=== PATIENT | female | born 1990 | race Caucasian/White ===

== ENCOUNTER 2018-05-24 21:31 | Emergency (ER) | payer SELFPAY ==
[~2018-05-24] VITALS: Ht 162.6 cm; Wt 49.0 kg
[~2018-05-24 21:31] MED LIST: IBUP800T19 PO; PREN1TAB58 PO
--- NOTE | 2018-05-24 21:57 | PHYS DOC ---
Adult General Chief Complaint Chief Complaint redness HPI HPI This is 28 years old female with a history of IV drug use presented to the emergency department with right forearm is willing redness tenderness after her last shot for the past 24 hours No fever no chills no urgency no frequency no any other symptoms Review of Systems Review of Systems Constitutional: Denies fever or chills [] Eyes: Denies change in visual acuity, redness, or eye pain [] HENT: Denies nasal congestion or sore throat [] Respiratory: Denies cough or shortness of breath [] Cardiovascular: No additional information not addressed in HPI [] GI: Denies abdominal pain, nausea, vomiting, bloody stools or diarrhea [] : Denies dysuria or hematuria [] Musculoskeletal: Right forearm swelling tenderness and redness[] Integument: Denies rash or skin lesions [] Neurologic: Denies headache, focal weakness or sensory changes [] Endocrine: Denies polyuria or polydipsia [] All other systems were reviewed and found to be within normal limits, except as documented in this note. Allergies Allergies Allergies Coded Allergies Type Severity Reaction Last Updated Verified Sulfa (Sulfonamide Antibiotics) Allergy Mild Hives 07/25/13 Yes amoxicillin trihydrate Adverse Reaction Mild Nausea 07/25/13 Yes potassium clavulanate Adverse Reaction Mild Nausea 07/25/13 Yes Physical Exam Physical Exam Constitutional: Well developed, well nourished, no acute distress, non-toxic appearance. [] HENT: Normocephalic, atraumatic, bilateral external ears normal, oropharynx moist, no oral exudates, nose normal. [] Eyes: PERRLA, EOMI, conjunctiva normal, no discharge. [] Neck: Normal range of motion, no tenderness, supple, no stridor. [] Cardiovascular:Heart rate regular rhythm, no murmur [] Lungs & Thorax: Bilateral breath sounds clear to auscultation [] Abdomen: Bowel sounds normal, soft, no tenderness, no masses, no pulsatile masses. [] Skin: Right forearm redness swelling tenderness 55 cm Back: No tenderness, no CVA tenderness. [] Extremities: No tenderness, no cyanosis, no clubbing, ROM intact, no edema. [] Neurologic: Alert and oriented X 3, normal motor function, normal sensory function, no focal deficits noted. [] Psychologic: Affect normal, judgement normal, mood normal. [] EKG EKG [] Radiology/Procedures Radiology/Procedures [] Course & Med Decision Making Course & Med Decision Making Pertinent Labs and Imaging studies reviewed. (See chart for details) [] Final Impression Final Impression Patient will be discharged home on Keflex and doxycycline She stated she took both medication the past and did not have any allergic reaction[] Problems: (1) Cellulitis Qualifiers: Qualified Codes: L03.113 - Cellulitis of right upper limb Dragon Disclaimer Dragon Disclaimer This electronic medical record was generated, in whole or in part, using a voice recognition dictation system. ESTHER FARIAS MD May 24, 2018 21:57
[2018-05-24] MEDS ORDERED: IBUP800T19 PO (21:59)
[2018-05-24] MEDS ORDERED: CEPH-264 PO (21:59)
[2018-05-24] MEDS ORDERED: DOXY100T9 PO (21:59)
[2018-05-24] MEDS: KETOROLAC 60 MG/2 ML VIAL. IM ONE (22:11)
[2018-05-24] MEDS: cefTRIAXone IM 1 GM VIAL IM ONE (22:11)
[2018-05-24 22:35] VITALS: BP 98/57
== END 2018-05-24 22:35 | disposition home or self-care (01) ==
LOC: ER 21:31
DX: L03.113 Cellulitis of right upper limb (principal); Z88.2 Allergy status to sulfonamides; Z88.1 Allergy status to other antibiotic agents; Z88.8 Allergy status to other drugs, medicaments and biological substances
CPT/HCPCS: 96372; 99284; J0696; J1885

== ENCOUNTER 2021-02-01 23:43 | Emergency (ER) | payer SELFPAY ==
[~2021-02-01] VITALS: Ht 162.6 cm; Wt 54.0 kg
[2021-02-01 23:43] VITALS: BP 98/57
[~2021-02-01 23:43] MED LIST changes: +CEPH-264 PO; +DOXY-96 PO
--- NOTE | 2021-02-01 23:49 | PHYS DOC ---
Past History Past Medical History: Anxiety, Depression Past Surgical History: Appendectomy, Tonsillectomy, Other Smoking: Cigarettes, Greater than 1 pack/day Alcohol Use: None Drug Use: Heroin, Methamphetamine, Opiates General Adult EDM: Chief Complaint: DENTAL PROBLEM HPI: HPI: ".. I ve got bad teeth.. but now probably a abscess.. or infection.. the whole side of my face is swollen.. here on Lt. ..." Patient is a 31 year old female who presents with above hx and complaints of left mandible pain and edema. Patient has multiple areas of dental decay. Has obvious marked pain in teeth 21,22 ,23 and 24. No trismus. Does have facial swelling and erythema. Does have adenopathy at the angle of mandible on the left. Patient requesting to be started on antibiotics until she can follow-up with dentist. No recent travel. No sick ill contacts. Has had history of MRSA in the past. Review of Systems: Review of Systems: Constitutional: Denies fever or chills Eyes: Denies change in visual acuity HENT: Complains of dental pain Respiratory: Denies cough or shortness of breath Cardiovascular: Denies chest pain or edema GI: Denies abdominal pain, nausea, vomiting, bloody stools or diarrhea : Denies dysuria Musculoskeletal: Denies back pain or joint pain Integument: Denies rash Neurologic: Denies headache, focal weakness or sensory changes Endocrine: Denies polyuria or polydipsia Lymphatic: Denies swollen glands Psychiatric: Denies depression or anxiety Family History: Family History: Noncontributory presentation Current Medications: Current Meds: See nursing for home meds Allergies: Allergies: Allergies Coded Allergies Type Severity Reaction Last Updated Verified Sulfa (Sulfonamide Antibiotics) Allergy Mild Hives 07/25/13 Yes amoxicillin trihydrate Adverse Reaction Mild Nausea 07/25/13 Yes potassium clavulanate Adverse Reaction Mild Nausea 07/25/13 Yes Physical Exam: PE: Constitutional: Moderate acute distress, non-toxic appearance. [] HENT: Normocephalic, atraumatic, bilateral external ears normal, oropharynx moist, no oral exudates, nose normal. Area of dental pain as per HPI. Facial swelling and erythema Eyes: PERRLA, EOMI, conjunctiva normal, no discharge. [] Neck: Normal range of motion, no tenderness, supple, no stridor. Adenopathy ang le mandible left Cardiovascular:Heart rate regular rhythm, no murmur [] Lungs & Thorax: Bilateral breath sounds equal apex scattered wheezes on auscultation [] Abdomen: Bowel sounds normal, soft, no tenderness, no masses, no pulsatile masses. [] Skin: Warm, dry, no erythema, no rash. Old track yeh Back: No tenderness, no CVA tenderness. [] Extremities: No tenderness, no cyanosis, no clubbing, ROM intact, no edema. [] Neurologic: Alert and oriented X 3, normal motor function, normal sensory function, no focal deficits noted. [] Psychologic: Affect anxious judgement normal, mood normal. [] EKG: EKG: [] Radiology/Procedures: Radiology/Procedures: [] Heart Score: C/O Chest Pain: N/A Risk Factors: Risk Factors: DM, Current or recent (<one month) smoker, HTN, HLP, family history of CAD, obesity. Risk Scores: Score 0 - 3: 2.5% MACE over next 6 weeks - Discharge Home Score 4 - 6: 20.3% MACE over next 6 weeks - Admit for Clinical Observation Score 7 - 10: 72.7% MACE over next 6 weeks - Early Invasive Strategies Course & Med Decision Making: Course & Med Decision Making Pertinent Labs and Imaging studies reviewed. (See chart for details) Patient must follow-up with dentist or oral surgeon. Take Tylenol and ibuprofen for pain. Take Keflex 500 mg 3 times a day. If you do not have a local dentist consider follow-up [facility] dental school or oral surgery clinic. May need extraction of these teeth that are causing you the pain. Impression: 1. Dental pain 2. Facial cellulitis [] Dragon Disclaimer: Corry Disclaimer: This electronic medical record was generated, in whole or in part, using a voice recognition dictation system. Departure Departure: Referrals: PCP,NO (PCP) Scripts Cephalexin (KEFLEX) 750 Mg Capsule 500 MG PO TID for facial and dental infection for 10 Days, #20 CAP Prov: CRISTINA PAZ MD 02/02/21 CRISTINA PAZ MD Feb 01, 2021 23:49
[2021-02-02] MEDS ORDERED: CEPH750C9 PO (00:05)
[2021-02-02] MEDS ORDERED: CEPHALEXIN 250 MG CAPSULE PO ONE (00:30)
[2021-02-02] MEDS ORDERED: DIPH,PERTUSS(ACELL),TET VAC/PF 0.5 ML SYRINGE. VAX IM ONE (00:30)
== END 2021-02-02 00:22 | disposition home or self-care (01) ==
LOC: ER 23:43
DX: L03.211 Cellulitis of face (principal); K08.89 Other specified disorders of teeth and supporting structures; F17.210 Nicotine dependence, cigarettes, uncomplicated; Z88.2 Allergy status to sulfonamides; Z88.1 Allergy status to other antibiotic agents; Z88.8 Allergy status to other drugs, medicaments and biological substances
CPT/HCPCS: 90471; 90715; 99283

== ENCOUNTER 2021-06-21 17:27 | Emergency (ER) | payer SELFPAY ==
[~2021-06-21] VITALS: Ht 162.6 cm; Wt 54.0 kg
[~2021-06-21 17:27] MED LIST changes: +CEPH750C9 PO
[2021-06-21 18:41] VITALS: BP 103/66
--- NOTE | 2021-06-21 19:40 | PHYS DOC ---
Past History Past Medical History: Anxiety, Depression Additional Past Medical Histor: HEP-C (DEMOND FINLEY APRN) Past Surgical History: Appendectomy, Tonsillectomy, Other (DEMOND FINLEY APRN) Smoking: Cigarettes, Greater than 1 pack/day Alcohol Use: None Drug Use: Heroin, Methamphetamine, Opiates (DEMOND FINLEY APRN) Adult General Chief Complaint Chief Complaint: WOUND CHECK HPI HPI Patient is a 31-year-old female presents to the emergency department requesting a wound recheck for an abscess on her right forearm. Patient reports she was seen at [facility] emergency department for a abscess to her right forearm related to IV drug abuse of heroin. Patient reports this was cut into and drained and then packed with a type of gauze, patient reports she was told to come to the emergency department in 3 or so days for a wound recheck and to have the gauze removed. Patient reports she is taking clindamycin 450 mg 3 times a day as directed, reports the redness is looking much better and is only light pink now, reports the swelling is looking much better and has lessened tremendously. Patient reports her pain is now tolerable without taking pain medications. Patient reports her last heroin use was yesterday, reports she is trying to stop heroin abuse. Patient denies other physical complaints or physical concerns. (DEMOND FINLEY APRN) Review of Systems Review of Systems 14 body systems of review of systems have been reviewed. See HPI for pertinent positives and negative responses, otherwise all other systems are negative, nonpertinent or noncontributory. Constitutional: Negative except as outlined in HPI above. Skin: Negative except as outlined in HPI above. Eyes: Negative except as outlined in HPI above. HENT: Negative except as outlined in HPI above. Respiratory: Negative except as outlined in HPI above. Cardiovascular: Negative except as outlined in HPI above. GI: Negative except as outlined in HPI above. : Negative except as outlined in HPI above. Musculoskeletal: Negative except as outlined in HPI above. Integument: Negative except as outlined in HPI above. Neurologic: Negative except as outlined in HPI above. Endocrine: Negative except as outlined in HPI above. Lymphatic: Negative except as outlined in HPI above. Psychiatric: Negative except as outlined in HPI above. (DEMOND FINLEY APRN) Allergies Allergies Allergies Coded Allergies Type Severity Reaction Last Updated Verified Sulfa (Sulfonamide Antibiotics) Allergy Mild Hives 07/25/13 Yes amoxicillin trihydrate Adverse Reaction Mild Nausea 07/25/13 Yes potassium clavulanate Adverse Reaction Mild Nausea 07/25/13 Yes (DEMOND FINLEY APRN) Physical Exam Physical Exam Constitutional: Well developed, well nourished, no acute distress, non-toxic appearance. 31-year-old female in no apparent distress. HENT: Normocephalic, atraumatic. Eyes: Conjunctiva normal, no discharge. Neck: Normal range of motion, no stridor. Cardiovascular: No cyanosis appreciated, distal cap refill less than 2 seconds. Lungs & Thorax: Patient is in no respiratory distress, no audible adventitious lung sounds appreciated. Abdomen: Nontender, no abnormalities noted. Skin: Warm, dry, no erythema, no rash. Wound recheck of abscess of right forearm, quarter inch packing removed, cavity irrigated with 250 cc normal saline, no purulence or debris appreciated during irrigation, distal cap refill less than 2 seconds, mild pink erythema 3 cm diameter around I&D opening, no lym phangitis appreciated, mild pain with palpation over erythematous abscess site. Back: No tenderness, no deformities. Extremities: No tenderness, no cyanosis, no clubbing, ROM intact, no edema. Neurologic: Alert and oriented X 3, normal motor function, normal sensory function, no focal deficits noted. Psychologic: Affect normal, judgement normal, mood normal. (DEMOND FINLEY APRN) Current Patient Data Vital Signs Vital Signs Date Time Temp Pulse Resp B/P (MAP) Pulse Ox O2 Delivery O2 Flow Rate FiO2 06/21/21 18:41 88 16 103/66 (78) 99 Room Air (DEMOND FINLEY APRN) EKG EKG [] (DEMOND FINLEY APRN) Radiology/Procedures Radiology/Procedures [] (DEMOND FINLEY APRN) Heart Score C/O Chest Pain: No Risk Factors: Risk Factors: DM, Current or recent (<one month) smoker, HTN, HLP, family history of CAD, obesity. Risk Scores: Risk Factors: DM, Current or recent (<one month) smoker, HTN, HLP, family history of CAD, obesity. (DEMOND FINLEY APRN) Course & Med Decision Making Course & Med Decision Making Pertinent Labs and Imaging studies reviewed. (See chart for details) 31-year-old female, vital signs reviewed, presents to the emergency department for wound recheck and removal of packing from I&D site from this past Friday night. Physical examination consistent with patient's explanation of events, packing was removed, irrigated by myself. Dressed with bacitracin and loose Band-Aid by ED final coat sprayer. Discussed with and encourage patient to stop IV drug abuse, patient reports she is trying hard. Discussed with patient continue prescribed antibiotics until complete, return to ER precautions or concerns, home wound care for I&D site, patient gave verbal understanding of and is amenable to ED discharge planning. Discussed with the patient all findings and diagnostic testing as well as the need to follow-up with their primary care provider for further evaluation and treatment or return to the ED if any new or worsening symptoms. Strict return precautions were also discussed at length, the patient voiced understanding and agreement with the discharge planning. The patient was nontoxic in appearance, in no apparent distress, and hemodynamically stable at the time of disposition. (DEMOND FINLEY APRN) Dragon Disclaimer Dragon Disclaimer This electronic medical record was generated, in whole or in part, using a voice recognition dictation system. (DEMOND FINLEY APRN) Attending Co-Sign The patient was seen and interviewed as well as examined at the bedside. The chart was reviewed. The case was discussed. Agree with the plan of care. (CAN CARLOS DO) Departure Departure: Impression: Primary Impression: Wound check, abscess Additional Impression: IV drug abuse Disposition: HOME / SELF CARE / HOMELESS Condition: GOOD Referrals: PCP,NO (PCP) Patient Instructions: Open Wound, Forearm, [id number] Additional Instructions: Keep clean and dry, apply antibiotic ointment and cover loosely with Band-Aid as we discussed, continue your prescribed antibiotics until complete, continue to monitor for signs and symptoms of increasing infection, return to the emergency department for worsening symptoms or other concerns. Follow-up with your primary care physician soon for reevaluation of this wound. Thank you for visiting our Emergency Department. It was a pleasure taking care of you today in the emergency department and we appreciate you trusting us with your care. If any additional problems come up don't hesitate to return to visit us. Please follow up with your primary care provider so they can plan additional care if needed and know about the problem that you had. If symptoms worsen come back to the Emergency Department. Any concerning symptoms that start such as chest pain, shortness of air, weakness or numbness on one side of the body, running high fevers or any other concerning symptoms return to the ER. Problem Qualifiers DEMOND FINLEY APRN Jun 21, 2021 19:40 CAN CARLOS DO Jun 22, 2021 05:53
[2021-06-21] MEDS ORDERED: BACITRACIN ZINC TOPICAL OINT PACKET. TP ONE (19:45)
== END 2021-06-21 19:46 | disposition home or self-care (01) ==
LOC: ER 17:29
DX: Z48.01 Encounter for change or removal of surgical wound dressing (principal); L02.413 Cutaneous abscess of right upper limb; F19.10 Other psychoactive substance abuse, uncomplicated; F41.9 Anxiety disorder, unspecified; F32.9 Major depressive disorder, single episode, unspecified; F17.210 Nicotine dependence, cigarettes, uncomplicated; Z88.2 Allergy status to sulfonamides; Z88.1 Allergy status to other antibiotic agents; Z88.8 Allergy status to other drugs, medicaments and biological substances
CPT/HCPCS: 99282